=== PATIENT | female | born 1930 | race Caucasian/White ===

== ENCOUNTER 2018-06-08 13:22 | Emergency (ER) | payer MEDICARE ==
[~2018-06-08] VITALS: Ht 167.6 cm; Wt 72.6 kg
[~2018-06-08 13:22] MED LIST: BAYER CHEWABLE81 MG PO; CENTRUM SILVER1 EAC4 PO; KEFLEX250 M1 PO; VICODIN 5-3001 EACH PO
[2018-06-08 13:32] VITALS: BP 190/73
[2018-06-08] MEDS ORDERED: KEFLEX500 M1 PO (13:49)
[2018-06-08] MEDS ORDERED: BACTRIM DS TAB1 EACH PO (13:49)
== END 2018-06-08 14:02 | disposition home or self-care (01) ==
LOC: M.ERS 13:22
DX: L03.116 Cellulitis of left lower limb (principal); Z88.6 Allergy status to analgesic agent; Z88.5 Allergy status to narcotic agent; Z88.8 Allergy status to other drugs, medicaments and biological substances; Z90.49 Acquired absence of other specified parts of digestive tract; Z90.710 Acquired absence of both cervix and uterus; Z85.3 Personal history of malignant neoplasm of breast; Z90.12 Acquired absence of left breast and nipple

== ENCOUNTER → 2018-06-11 | Outpatient (CLI) | payer MEDICARE ==
[~2018-06-11] MED LIST changes: +BACTRIM DS TAB1 EACH PO; +KEFLEX500 M1 PO
[2018-06-11 15:18] LABS: ABSOLUTE BASOPHILS 0.1 thou/uL (0.0-0.2); ABSOLUTE EOSINOPHILS 0.1 thou/uL (0.0-0.7); ABSOLUTE LYMPHOCYTES 1.4 thou/uL (0.8-5.3); ABSOLUTE MONOCYTES 0.6 thou/uL (0.0-1.2); ABSOLUTE NEUTROPHILS 4.8 thou/uL (1.6-8.1); BASOPHILS 0.9 %; EOSINOPHILS 0.9 %; HEMATOCRIT 42.8 % (37.0-47.0); HEMOGLOBIN 14.2 gm/dL (12.0-15.0); LYMPHOCYTES 20.8 %; MCH 30.8 pg (26.0-34.0); MCHC 33.2 g/dL (28.0-37.0); MONOCYTES 8.7 %; MPV 8.1 fl. (7.2-11.1); NUCLEATED RBCS 0 /100WBC; PLATELET COUNT* 229 thou/uL (150-400); POLYS 68.7 %; RDW-CV 13.1 % (10.5-14.5); WBC 6.9 thou/uL (4.0-11.0)
[2018-06-11 15:24] LABS: CALCIUM 8.7 mg/dL (8.5-10.1)
[2018-06-11 15:34] LABS: ALBUMIN 3.8 g/dL (3.4-5.0); TOTAL BILIRUBIN 0.3 mg/dL (<0.1-1.0); TOTAL PROTEIN 6.9 g/dL (6.4-8.2)
== END ==
LOC: M.ULTRA 14:25
PROVIDERS: Family Medicine
DX: M79.89 Other specified soft tissue disorders (principal); M79.662 Pain in left lower leg; R60.0 Localized edema

== ENCOUNTER → 2018-10-02 | Outpatient (CLI) | payer OTHER | LOC: M.RAD 13:09 | DX: M85.851 Other specified disorders of bone density and structure, right thigh (principal); M85.852 Other specified disorders of bone density and structure, left thigh; Z88.5 Allergy status to narcotic agent; Z88.8 Allergy status to other drugs, medicaments and biological substances ==

== ENCOUNTER → 2019-12-17 | Outpatient (CLI) | payer OTHER | LOC: M.RAD 11:07 | DX: M85.872 Other specified disorders of bone density and structure, left ankle and foot (principal); L03.116 Cellulitis of left lower limb ==

== ENCOUNTER → 2020-01-06 | Outpatient (CLI) | payer OTHER ==
--- NOTE | 2020-01-06 11:09 | 2DMMODE ---
[place] [address] 2 D/M-MODE ECHOCARDIOGRAM Name: MENDY AGUILAR Jose Room: [facility]#: [id number] Admission: 01/06/20 Attend Phys: Teo Samaniego MD Discharge: Date of : 34 Date of Service: 01/06/20 1107 Report #: [id number] THIS REPORT FOR: cc: Isabelle Cheng Maggie M. DO Blick, David R. MD [facility] ~ APPROVED REPORT Study performed: 01/06/2020 08:48:21 EXAM: Comprehensive 2D, Doppler, and color-flow Echocardiogram Patient Location: Out-Patient BSA: 1.89 HR: 75 bpm BP: 152/80 mmHg Other Information Study Quality: Good Indications Palpitations 2D Dimensions IVSd: 11.87 (7-11mm) LVOT Diam: 19.64 (18-24mm) LVDd: 47.91 mm PWd: 11.92 (7-11mm) Ascending Ao: 33.14 (22-36mm) LVDs: 25.13 (25-40mm) Aortic Root: 25.98 mm Volumes Left Atrial Volume (Systole) LA ESV Index: 23.20 mL/m2 Aortic Valve AoV Peak Boo.: 1.69 m/s AO Peak Gr.: 11.46 mmHg LVOT Max P.28 mmHg AO Mean Gr.: 6.90 mmHg LVOT Mean P.17 mmHg LVOT Max V: 1.03 m/s AO V2 VTI: 43.00 cm LVOT Mean V: 0.67 m/s JOSEFA (VTI): 2.05 cm2 LVOT V1 VTI: 29.16 cm Mitral Valve E/A Ratio: 0.52 [place] [address] 2 D/M-MODE ECHOCARDIOGRAM Name: MENDY AGUILAR Room: [facility]#: [id number] Admission: 01/06/20 Attend Phys: Teo Samaniego MD Discharge: Date of : 34 Date of Service: 01/06/20 1107 Report #: [id number] MV Decel. Time: 273.50 ms MV E Max Boo.: 0.53 m/s MV PHT: 79.31 ms MVA (PHT): 2.77 cm2 TDI E/Lateral E': 6.63 E/Medial E': 10.60 Medial E' Boo.: 0.05 m/s Lateral E' Boo.: 0.08 m/s Pulmonary Valve PV Peak Boo.: 0.95 m/s PV Peak Gr.: 3.64 mmHg Tricuspid Valve RAP Estimate: 5.00 mmHg TR Peak Gr.: 22.18 mmHg RVSP: 27.18 mmHg PA Pressure: 27.18 mmHg Left Ventricle The left ventricle is normal size. There is normal LV segmental wall motion. Mild concentric left ventricular hypertrophy. Left ventricular systolic function is normal. The left ventricular ejection fraction is within the normal range. LVEF is 55-60%. Grade I - abnormal relaxation pattern. Right Ventricle Right ventricle is mildly dilated. The right ventricular systolic function is normal. Atria The left atrium size is normal. Right atrium is mildly dilated. Aortic Valve Aortic valve is mildly calcified. No aortic regurgitation is present. There is no aortic valvular stenosis. Mitral Valve Mild mitral annular calcification. Mild mitral regurgitation. No evidence of mitral valve stenosis. Tricuspid Valve The tricuspid valve is normal in structure. Mild tricuspid regurgitation. estimated pa pressure 30 [place] [address] 2 D/M-MODE ECHOCARDIOGRAM Name: MENDY AGUILAR Room: [facility]#: [id number] Admission: 01/06/20 Attend Phys: Teo Samaniego MD Discharge: Date of : 34 Date of Service: 01/06/20 1107 Report #: [id number] The pulmonary valve is normal in structure. There is no pulmonic valvular regurgitation. Great Vessels The aortic root is normal in size. IVC is normal in size and collapses >50% with inspiration. Pericardium There is no pericardial effusion. <Conclusion> Mild concentric left ventricular hypertrophy. LVEF is 55-60%. Aortic valve is mildly calcified. Mild mitral regurgitation. <ELECTRONICALLY SIGNED> By: Teo Samaniego MD, FACC 01/06/20 1107 06 06 Teo Samaniego MD, FAC /INF
== END ==
LOC: M.CRD 08:40
DX: I08.8 Other rheumatic multiple valve diseases (principal)